=== PATIENT | female | born 1990 | race Two or more races ===

== ENCOUNTER 2024-08-29 17:23 | Emergency (ER) | payer SELFPAY ==
[2024-08-29 17:54] VITALS: BP 97/64; PULSE 83; RESP 14; TEMP 37; O2SAT 96; BMI 25.7
[2024-08-29] MEDS: HYDROcodone-acetaminophen 7.5-325 mg Tablet 1 TAB PO (18:49)
[2024-08-29] MEDS: amoxicillin-clav 875-125 mg Tablet 1 TAB PO (18:49)
[2024-08-29] MEDS: dexamethasone 10 mg/mL INJ IM (18:50)
--- NOTE | 2024-08-29 18:50 | W.ED.EAR ---
HPI - Ear Problem General: Chief complaint: Ear Stated complaint: ear drainage Time Seen by Provider: 08/29/24 17:27 Source: patient Mode of arrival: ambulatory Limitations: no limitations History of Present Illness: Patient is a 33-year-old female who presents the emergency department complaining of bilateral ear pain prior to arrival. Patient states she was out in the garden and tried to pop her ears by holding her nose closed and building up pressure, states she had sudden pop and severe pain with drainage to her right ear. States that she had to place a cotton swab in her right ear to stop the drainage. Notes mild hearing loss, but also is having worsening pain in her left ear. No fever, bleeding from the ear. She is noting some dizziness and a headache. Took some ibuprofen before coming in, states this did not very much. MD Complaint: ear pain, ear discharge and decreased hearing Location: bilateral (Right ear has discharge and decreased hearing, left ear is just pain) Duration: constant Severity: severe Relieving factors: nothing Context: other (Suspected barotrauma) Discharge from ear: yes - clear Associated symptoms: Reports ear or mastoid pain, external ear pain, headache(s) and hearing loss; Denies fever(s) or neck pain Treatment prior to arrival: oral analgesic Related Data Previous Rx's ?Medication ?Instructions ?Recorded amoxicillin 875 mg-potassium 1 tab PO BID 10 days #20 tabs 08/29/24 clavulanate 125 mg tablet prednisone 20 mg tablet 60 mg (3 x 20 mg) PO ONCE 5 days 08/29/24 #15 tabs Allergies Allergy/AdvReac Type Severity Reaction Status Date / Time No Known Allergies Allergy Verified 08/29/24 17:59 Review of Systems General: Reports: 10 or more systems reviewed and unremarkable except in HPI and below Const: Denies: fever(s), chills or fatigue Eyes: Denies: change in vision ENMT: Reports: ear or mastoid pain, ear discharge and change in hearing; Denies: throat pain, nasal discharge or nasal congestion Card: Denies: chest pain, palpitations, swelling of feet/ankles or lightheadedness Resp: Denies: dyspnea, productive cough or wheezing GI: Denies: abdominal pain, nausea, vomiting, diarrhea or constipation Musc: Denies: neck pain, back pain or joint pain Skin/Breast: Denies: rash Neuro: Reports: headache(s) and dizziness PFSH ED Female Reproductive History: Date of last menstrual period: 08/08/24 Physical Exam Const: COMMON NORMALS: no acute distress and healthy appearing GENERAL APPEARANCE: cooperative, comfortable and well developed HENMT: COMMON NORMALS: normocephalic, atraumatic, external ears normal, Normal external nose present and Normal nasal mucous membranes and turbinates present HEAD & SCALP: normal to inspection, normocephalic and atraumatic FACE & SINUS: normal facial exam and sinuses nontender NOSE: Normal external nose present, Normal nares present, No nasal polyps present and Normal nasal mucous membranes and turbinates present GENERAL EAR: hearing grossly impaired Laterality: right EXTERNAL EAR: Yes external ears normal, Yes mastoids normal and Yes no periauricular adenopathy EXTERNAL AUDITORY CANAL: Abnormal EAC present EAC laterality: right Details: otic discharge TYMPANIC MEMBRANE: TM normal on the left and TM abnormal TM laterality: right Details: perforation Details: with clear discharge MOUTH: Normal oral and palatal mucosa present THROAT: posterior oropharynx normal and tonsils normal Eye: COMMON NORMALS: EOMs intact bilaterally, conjunctivae normal and normal visual pozo by confrontation GENERAL EYE: appearance normal, both eyes and all related structures CONJUNCTIVA: Yes conjunctivae normal Neck/C-Spine: COMMON NORMALS: full ROM, no lymphadenopathy, supple and no meningeal signs GENERAL: Yes normal visual inspection Chest: COMMONS NORMALS: normal inspection of the chest Resp: COMMON NORMALS: normal respiratory effort and clear to auscultation bilaterally EFFORT & INSPECTION: Yes able to speak in complete sentences AUSCULTATION: clear to auscultation bilaterally Cardio: COMMON NORMALS: regular rate, regular rhythm, S1 normal heart sound present and S2 normal heart sound present RATE: regular rate RHYTHM: regular rhythm HEART SOUNDS: S1 normal heart sound present, S2 normal heart sound present, no gallops, no murmurs and no rubs Extremity: COMMON NORMALS: normal to inspection, full ROM and capillary refill normal Neuro: MENINGEAL SIGNS: Yes no meningeal signs Skin: COMMON NORMALS: no rashes or lesions noted GENERAL SKIN EXAM: no rashes or lesions noted Course Vital Signs: Vital signs: Vital Signs Temperature 98.6 F 08/29/24 17:54 Pulse Rate 83 08/29/24 17:54 Respiratory Rate 14 08/29/24 17:54 Blood Pressure 97/64 08/29/24 17:54 Pulse Oximetry 96 08/29/24 17:54 MDM - Ear Medical Decision Making Patient reported sudden onset of pain after pressure buildup holding her nose and trying to blow out to pop her ears. Severe pain and drainage with hearing loss to the right ear reported, on examination there is clear discharge also appears to be a perforation, though somewhat difficult to distinguish secondary to the amount of discharge. With the reported hearing loss and history I do suspect perforation and will treat with steroids and antibiotics and have her follow-up with ENT. Her left TM did appear normal. Her pain was treated with Diller here and encouraged her to alternate ibuprofen and Tylenol at home. No radiology studies performed this visit Discharge Plan Discharge Patient Disposition: Home Clinical Impression: Otitic barotrauma of right ear Condition: Stable Prescriptions: New prednisone 20 mg tablet 60 mg PO ONCE 5 Days Qty: 15 0RF amoxicillin-pot clavulanate 875-125 mg tablet 1 tab PO BID 10 Days Qty: 20 0RF Discharge Orders: Discharge ED (Routine); Ordered 08/29/24 Ordered By: Zac Song Patient Instructions: Barotitis Media (ED), Barotrauma (ED) Activity Restrictions/Additional Instructions: Please follow-up with ENT as we discussed. Take the antibiotics as prescribed on the label, take prednisone as well. Ibuprofen and Tylenol, alternate these for pain relief. Please return with any severe worsening of symptoms. Print Language: [place]ian Coding Level of Care Code ED [employer]
[2024-08-29 18:57] VITALS: BP 100/72; PULSE 87; O2SAT 99
== END 2024-08-29 19:00 | disposition home or self-care (01) ==
PROVIDERS: Emergency Provider Physician Assistant
DX: T70.0XXA Otitic barotrauma, initial encounter (principal); X58.XXXA Exposure to other specified factors, initial encounter
CPT/HCPCS: 96372; 99284; J1100